=== PATIENT | female | born 1970 | race African-American/Black ===

== ENCOUNTER 2024-02-07 22:00 | Emergency (ER) | payer OTHER, MEDICAID ==
[~2024-02-07] VITALS: Ht 157.5 cm; Wt 84.0 kg
[~2024-02-07 22:00] MED LIST: ACET-3161 PO; ATOR-2 PO; CARV12.545 PO; HYDR-4005 PO; INSU3INS6 SUBCUT; PANT40TA51 PO; PREG75CA PO; RIVA20TA PO
[2024-02-07 22:22] VITALS: TEMP 98.1; O2SAT 100
[2024-02-07] MEDS ORDERED: METOCLOPRAMIDE HCL 10MG/2ML VIAL IV NR (23:00)
[2024-02-07] MEDS ORDERED: DIPHENHYDRAMINE 50MG/ML VIAL IV NR (23:00)
[2024-02-07 23:25] LABS: BASOPHILS % 0.4 % (0.0-2.0); EOSINOPHILS % 1.8 % (0.0-5.0); HEMATOCRIT. 43.7 % (36.0-48.0); HEMOGLOBIN. 14.5 g/dL (12.0-16.0); LYMPHOCYTES % 33.8 % (20.0-50.0); MEAN CORPUSCULAR HEMOGLOBIN 26.6 pg (28.0-32.0); MEAN CORPUSCULAR HGB CONC 33.2 g/dL (31.0-37.0); MEAN PLATELET VOLUME 8.6 fl (7.4-10.4); MONOCYTES % 8.3 % (2.0-8.0); NEUTROPHILS % 55.7 % (40.0-76.0); PLATELET 237 x1000/uL (130-400); RED BLOOD CELL COUNT 5.46 mill/uL (4.2-5.4); RED CELL DISTRIBUTION WIDTH 14.6 % (11.6-14.6); WHITE BLOOD COUNT 7.9 x1000/uL (4.5-11.0)
[2024-02-07 23:30] LABS: CHLORIDE 107 mEq/L (98-107); POTASSIUM 4.1 mEq/L (3.5-5.1); SODIUM 139 mEq/L (136-145)
[2024-02-07 23:31] LABS: CALCIUM 9.8 mg/dL (8.7-10.4); CARBON DIOXIDE 27 mEq/L (21-32)
[2024-02-07 23:36] LABS: CREATININE 1.3 mg/dL (0.6-1.0); GLUCOSE 308 mg/dL (70-105); UREA NITROGEN BLOOD 14 mg/dL (9-23)
[2024-02-07 23:38] LABS: TROPONIN I HIGH SENSITIVITY 5 ng/L (3.0-34)
[2024-02-07 23:39] LABS: ETHANOL BLOOD < 10 mg/dL (<10)
[2024-02-08] MEDS: ACETAMINOPHEN 325MG TABLET PO NR (01:17)
[2024-02-08] MEDS: METOCLOPRAMIDE HCL 10MG TABLET PO ONE (01:41)
[2024-02-08] MEDS: DIPHENHYDRAMINE 25MG CAPSULE PO ONE (01:41)
[2024-02-08 02:20] LABS: *AMPHETAMINES SCREEN URINE NEGATIVE (NEGATIVE); *BARBITURATES SCREEN URINE NEGATIVE (NEGATIVE); *BENZODIAZEPINES SCREEN URINE NEGATIVE (NEGATIVE); *COCAINE SCREEN URINE NEGATIVE (NEGATIVE); CANNABINOID URINE SCREEN NEGATIVE (NEGATIVE); ECSTASY MDMA SCREEN URINE NEGATIVE (NEGATIVE); METHADONE URINE SCREEN NEGATIVE (NEGATIVE); OPIATES URINE SCREEN NEGATIVE (NEGATIVE); PHENCYCLIDINE URINE SCREEN NEGATIVE (NEGATIVE)
[2024-02-08] MEDS ORDERED: METO-293 MT (02:44)
[2024-02-08] MEDS ORDERED: ACET-2708 MT (02:44)
[2024-02-08 03:41] VITALS: BP 141/77; PULSE 92; RESP 14
== END 2024-02-08 03:42 | disposition home or self-care (01) ==
LOC: ER 22:00
DX: G44.209 Tension-type headache, unspecified, not intractable (principal); I10 Essential (primary) hypertension; E11.9 Type 2 diabetes mellitus without complications; I25.2 Old myocardial infarction; Z79.899 Other long term (current) drug therapy
CPT/HCPCS: 80048; 80320; 83880; 85025; 84484; 36415; 70450; 93005; 99284; 80305; Q0163; J8597; J1200; J2765; G0480

== ENCOUNTER 2024-02-08 18:49 | Emergency (ER) | payer OTHER, MEDICAID ==
[~2024-02-08] VITALS: Ht 162.6 cm; Wt 82.0 kg
[~2024-02-08 18:49] MED LIST changes: +ACET-2708 MT; +METO-293 MT
[2024-02-08 18:55] VITALS: BP 120/71; PULSE 86; RESP 18; TEMP 98.1; O2SAT 98
== END 2024-02-08 19:57 | disposition home or self-care (01) ==
LOC: ER 18:49
DX: I63.9 Cerebral infarction, unspecified (principal); E11.9 Type 2 diabetes mellitus without complications; I10 Essential (primary) hypertension; I25.2 Old myocardial infarction; Z90.89 Acquired absence of other organs; Z98.890 Other specified postprocedural states
CPT/HCPCS: 99281

== ENCOUNTER 2024-03-03 20:35 | Inpatient (IN) | payer MEDICAID ==
[~2024-03-03] VITALS: Ht 157.5 cm; Wt 81.2 kg
[2024-03-03 20:35] VITALS: BP 187/97; PULSE 101; RESP 19; TEMP 98.6
[2024-03-03] MEDS ORDERED: DEXTROSE 50% WATER 50ML SYRINGE IV PRN (22:30)
[2024-03-03] MEDS ORDERED: ERGOCALCIFEROL 50000UNITS CAPSULE PO ONE (22:30)
[2024-03-03] MEDS ORDERED: ONDANSETRON 4MG ODT PO PRN (22:30)
[2024-03-03] MEDS ORDERED: CALCIUM CARBONATE 500MG TABLET CHEW PO PRN (22:30)
[2024-03-03 23:00] VITALS: BP 187/97; PULSE 101; RESP 19; TEMP 98.6
[2024-03-04] MEDS: CLONIDINE 0.2MG TABLET PO PRN (00:04)
[2024-03-04] MEDS: PANTOPRAZOLE 40MG DR TABLET PO SCH (06:55)
[2024-03-04] MEDS: INSULIN LISPRO 100 UNITS/ML SUBCUT SCH (06:58)
[2024-03-04] MEDS: BLOOD SUGAR DIAGNOSTIC STRIP TEST SCH (06:58)
[2024-03-04 08:00] VITALS: BP 138/69; PULSE 92; RESP 20; TEMP 96.1
[2024-03-04] MEDS: CILOSTAZOL 100MG TABLET PO SCH (08:54)
[2024-03-04] MEDS: CLOPIDOGREL 75MG TABLET PO SCH (08:54)
[2024-03-04] MEDS: FLUDROCORTISONE ACETATE 0.1MG TABLET PO SCH (08:55)
[2024-03-04] MEDS: MIDODRINE HCL 5MG TABLET PO SCH (08:55)
[2024-03-04] MEDS: LIDOCAINE 5% PATCH TOP SCH (08:57)
[2024-03-04] MEDS ORDERED: NON FORMULARY PATIENT HOME MED PO SCH (09:00)
[2024-03-04] MEDS: ENOXAPARIN 40MG/0.4ML SYR SUBCUT SCH (12:30)
[2024-03-04] MEDS: EMPAGLIFLOZIN 10MG TABLET PO SCH (14:45)
[2024-03-04 15:14] LABS: BASOPHILS % 0.6 % (0.0-2.0); HEMATOCRIT. 36.9 % (36.0-48.0); LYMPHOCYTES % 21.7 % (20.0-50.0); MEAN CORPUSCULAR HEMOGLOBIN 26.1 pg (28.0-32.0); MEAN CORPUSCULAR HGB CONC 32.5 g/dL (31.0-37.0); MEAN CORPUSCULAR VOLUME 80.1 fL (81.0-99.0); NEUTROPHILS % 66.7 % (40.0-76.0); PLATELET 349 x1000/uL (130-400); RED CELL DISTRIBUTION WIDTH 15.8 % (11.6-14.6); WHITE BLOOD COUNT 8.9 x1000/uL (4.5-11.0)
[2024-03-04 15:21] LABS: CHLORIDE 106 mEq/L (98-107); POTASSIUM 3.9 mEq/L (3.5-5.1); SODIUM 140 mEq/L (136-145)
[2024-03-04 15:22] LABS: CALCIUM 9.3 mg/dL (8.7-10.4); CARBON DIOXIDE 24 mEq/L (21-32)
[2024-03-04 15:27] LABS: CREATININE 1.1 mg/dL (0.6-1.0); GLUCOSE 149 mg/dL (70-105); UREA NITROGEN BLOOD 8 mg/dL (9-23)
[2024-03-04 15:29] LABS: ALANINE AMINOTRANSFERASE 13 IU/L (10-49); ALBUMIN 3.6 g/dL (3.2-4.8); ASPARTATE AMINOTRANSFERASE 22 IU/L (<34); BILIRUBIN TOTAL 0.6 mg/dL (0.1-1.0); PREALBUMIN 8.3 mg/dl (10.0-40.0); PROTEIN TOTAL 6.4 g/dL (6.0-8.3)
[2024-03-04 20:00] VITALS: BP 152/75; PULSE 101; RESP 20; TEMP 98.2
[2024-03-04] MEDS: ATORVASTATIN CALCIUM 40MG TABLET PO SCH (21:08)
[2024-03-04] MEDS: GABAPENTIN 300MG CAPSULE PO SCH (21:08)
[2024-03-04] MEDS: ACETAMINOPHEN 325MG TABLET PO PRN (21:10)
[2024-03-05 08:00] VITALS: BP 149/71; PULSE 85; RESP 19; TEMP 97.6
[2024-03-05] MEDS: ACETAMINOPHEN 325MG TABLET PO PRN (13:44)
[2024-03-05] MEDS: BISMUTH SUBSALICYLATE 262 MG/15 ML-120ML BOTTLE PO PRN (16:52)
[2024-03-05 20:00] VITALS: BP 142/84; PULSE 96; RESP 18; TEMP 97.9
[2024-03-06 07:30] LABS: CHLORIDE 109 mEq/L (98-107); POTASSIUM 5.4 mEq/L (3.5-5.1); SODIUM 139 mEq/L (136-145)
[2024-03-06 07:31] LABS: CALCIUM 9.3 mg/dL (8.7-10.4)
[2024-03-06 07:36] LABS: CREATININE 1.1 mg/dL (0.6-1.0); GLUCOSE 192 mg/dL (70-105); IRON 48 ug/dL (50-170); UREA NITROGEN BLOOD 6 mg/dL (9-23)
[2024-03-06 07:38] LABS: TOTAL IRON BINDING CAPACITY 254 ug/dl (250-425)
[2024-03-06 07:41] LABS: THYROID STIMULATING HORMONE 2.56 uIU/mL (0.55-4.78)
[2024-03-06 08:00] VITALS: BP 128/59; PULSE 108; RESP 20; TEMP 98
[2024-03-06] MEDS: ERGOCALCIFEROL 50000UNITS CAPSULE PO SCH (08:51)
[2024-03-06] MEDS: FAMOTIDINE 20MG TABLET PO SCH (08:52)
[2024-03-06 09:13] LABS: FERRITIN 188 ng/mL (10-291)
[2024-03-06 09:14] LABS: VITAMIN B12 SERUM 901 pg/mL (211-911)
[2024-03-06 10:57] LABS: CARBON DIOXIDE 14 mEq/L (21-32)
[2024-03-06 11:14] LABS: BASOPHILS % 1.2 % (0.0-2.0); DIFFERENTIAL COMMENT 0; EOSINOPHILS % 0.9 % (0.0-5.0); HEMATOCRIT. 38.9 % (36.0-48.0); HEMOGLOBIN. 12.4 g/dL (12.0-16.0); LYMPHOCYTES % 26.3 % (20.0-50.0); MEAN CORPUSCULAR HEMOGLOBIN 25.3 pg (28.0-32.0); MEAN CORPUSCULAR VOLUME 79.2 fL (81.0-99.0); MEAN PLATELET VOLUME 7.9 fl (7.4-10.4); MONOCYTES % 9.2 % (2.0-8.0); NEUTROPHILS % 62.4 % (40.0-76.0); RED BLOOD CELL COUNT 4.91 mill/uL (4.2-5.4); RED CELL DISTRIBUTION WIDTH 16.2 % (11.6-14.6); WHITE BLOOD COUNT 8.3 x1000/uL (4.5-11.0)
[2024-03-06 11:17] LABS: PLATELET 382 x1000/uL (130-400)
[2024-03-06 11:46] LABS: POTASSIUM 3.4 mEq/L (3.5-5.1)
[2024-03-06 12:05] LABS: FOLIC ACID (FOLATE) SERUM 19.69 ng/mL (>5.38)
[2024-03-06 20:00] VITALS: BP 144/87; PULSE 112; RESP 18; TEMP 98.1
[2024-03-06] MEDS: POTASSIUM CHLORIDE 20MEQ/PACKET PO NR (20:04)
[2024-03-07 07:15] LABS: BASOPHILS % 0.8 % (0.0-2.0); DIFFERENTIAL COMMENT 0; EOSINOPHILS % 1.7 % (0.0-5.0); HEMATOCRIT. 34.9 % (36.0-48.0); HEMOGLOBIN. 11.4 g/dL (12.0-16.0); LYMPHOCYTES % 40.3 % (20.0-50.0); MEAN CORPUSCULAR HGB CONC 32.7 g/dL (31.0-37.0); MEAN CORPUSCULAR VOLUME 79.3 fL (81.0-99.0); MEAN PLATELET VOLUME 8.2 fl (7.4-10.4); MONOCYTES % 13.9 % (2.0-8.0); NEUTROPHILS % 43.3 % (40.0-76.0); PLATELET 306 x1000/uL (130-400); RED CELL DISTRIBUTION WIDTH 16.6 % (11.6-14.6); WHITE BLOOD COUNT 5.5 x1000/uL (4.5-11.0)
[2024-03-07 07:19] LABS: POTASSIUM 3.9 mEq/L (3.5-5.1)
[2024-03-07 07:20] LABS: CALCIUM 9.4 mg/dL (8.7-10.4)
[2024-03-07 07:25] LABS: CREATININE 1.3 mg/dL (0.6-1.0)
[2024-03-07 08:00] VITALS: BP 117/50; PULSE 112; RESP 18; TEMP 98.1
[2024-03-07] MEDS: FERROUS SULFATE 325MG TABLET PO SCH (12:52)
[2024-03-07 20:00] VITALS: BP 133/75; PULSE 110; RESP 18; TEMP 98.4
[2024-03-08 06:26] LABS: POTASSIUM 3.3 mEq/L (3.5-5.1)
[2024-03-08 06:28] LABS: CALCIUM 9.2 mg/dL (8.7-10.4)
[2024-03-08 06:32] LABS: CREATININE 1.3 mg/dL (0.6-1.0)
[2024-03-08 08:00] VITALS: BP 140/73; PULSE 75; PULSE 91; RESP 18; RESP 20; TEMP 98.4; TEMP 98.6
[2024-03-08] MEDS: ASCORBIC ACID 500 MG TABLET PO SCH (08:31)
[2024-03-08] MEDS ORDERED: POTASSIUM CHLORIDE 8 MEQ TABLET SR PO ONE (11:15)
[2024-03-08] MEDS ORDERED: POTASSIUM CHLORIDE 20MEQ TABLET SR PO SCH (11:15)
[2024-03-08] MEDS: POTASSIUM CHLORIDE 20MEQ TABLET SR PO NR (11:30)
[2024-03-08] MEDS: MIDODRINE HCL 5MG TABLET PO SCH (14:00)
[2024-03-08 20:00] VITALS: BP 154/81; PULSE 82; RESP 20; TEMP 97.8
[2024-03-08] MEDS: INSULIN GLARGINE 100 UNITS/ML SUBCUT SCH (22:15)
[2024-03-09 06:28] LABS: CHLORIDE 112 mEq/L (98-107); POTASSIUM 3.7 mEq/L (3.5-5.1); SODIUM 145 mEq/L (136-145)
[2024-03-09 06:29] LABS: CALCIUM 9.3 mg/dL (8.7-10.4); CARBON DIOXIDE 26 mEq/L (21-32)
[2024-03-09 06:34] LABS: CREATININE 1.1 mg/dL (0.6-1.0); GLUCOSE 93 mg/dL (70-105); UREA NITROGEN BLOOD 7 mg/dL (9-23)
[2024-03-09 08:00] VITALS: BP 145/69; PULSE 104; RESP 20; TEMP 97.9
[2024-03-09] MEDS: ERGOCALCIFEROL 50000UNITS CAPSULE PO SCH (16:00)
[2024-03-09] MEDS: AMLODIPINE 2.5MG TABLET PO SCH (17:00)
[2024-03-09] MEDS: MIDODRINE HCL 5MG TABLET PO SCH (17:00)
[2024-03-09] MEDS: INSULIN LISPRO 100 UNITS/ML SUBCUT SCH (18:23)
[2024-03-09 20:00] VITALS: BP 138/80; PULSE 88; RESP 20; TEMP 97.2
[2024-03-10 06:42] LABS: CHLORIDE 111 mEq/L (98-107); POTASSIUM 3.6 mEq/L (3.5-5.1); SODIUM 143 mEq/L (136-145)
[2024-03-10 06:43] LABS: CARBON DIOXIDE 25 mEq/L (21-32)
[2024-03-10 06:44] LABS: CALCIUM 9.5 mg/dL (8.7-10.4)
[2024-03-10 06:49] LABS: CREATININE 1.1 mg/dL (0.6-1.0); GLUCOSE 102 mg/dL (70-105); UREA NITROGEN BLOOD 5 mg/dL (9-23)
[2024-03-10 07:00] LABS: BASOPHILS % 0.4 % (0.0-2.0); EOSINOPHILS % 2.2 % (0.0-5.0); HEMATOCRIT. 36.4 % (36.0-48.0); HEMOGLOBIN. 11.5 g/dL (12.0-16.0); LYMPHOCYTES % 54.8 % (20.0-50.0); MEAN CORPUSCULAR HEMOGLOBIN 25.6 pg (28.0-32.0); MEAN CORPUSCULAR HGB CONC 31.6 g/dL (31.0-37.0); MEAN CORPUSCULAR VOLUME 81.1 fL (81.0-99.0); MEAN PLATELET VOLUME 9.1 fl (7.4-10.4); MONOCYTES % 11.7 % (2.0-8.0); NEUTROPHILS % 30.9 % (40.0-76.0); PLATELET 295 x1000/uL (130-400); RED BLOOD CELL COUNT 4.48 mill/uL (4.2-5.4); RED CELL DISTRIBUTION WIDTH 16.8 % (11.6-14.6); WHITE BLOOD COUNT 6.3 x1000/uL (4.5-11.0)
[2024-03-10 07:58] VITALS: BP 116/68; PULSE 109; RESP 20; TEMP 98.3
[2024-03-10 10:42] VITALS: BP 116/68; PULSE 109; TEMP 98.3
[2024-03-10 10:54] VITALS: BP 116/68; PULSE 109; TEMP 98.3
[2024-03-10] MEDS ORDERED: AMLO2.5T45 PO (11:52)
[2024-03-10] MEDS ORDERED: ASCO125T PO (11:57)
[2024-03-10] MEDS ORDERED: ATOR40TA70 PO (11:59)
[2024-03-10] MEDS ORDERED: ATOR-2 PO (11:59)
[2024-03-10] MEDS ORDERED: CALC-586 PO (12:04)
[2024-03-10] MEDS ORDERED: EMPA10TA PO (12:18)
[2024-03-10] MEDS ORDERED: MIDO5TAB4 PO (12:18)
[2024-03-10] MEDS ORDERED: FAMO20TA8 PO (12:18)
[2024-03-10] MEDS ORDERED: GABA-532 MT (12:18)
[2024-03-10] MEDS ORDERED: CILO100T27 PO (12:18)
[2024-03-10] MEDS ORDERED: INSU100I28 SQ (12:18)
[2024-03-10] MEDS ORDERED: FLUD0.1T PO (12:18)
[2024-03-10] MEDS ORDERED: FERR325T6 PO (12:18)
[2024-03-10] MEDS ORDERED: ONDA4TAB11 PO (12:18)
[2024-03-10] MEDS ORDERED: CLOP75TA33 PO (12:18)
[2024-03-10] MEDS ORDERED: INSLIS SUBCUT (12:18)
== END 2024-03-10 12:45 | disposition home or self-care (01) | DRG 45 ==
PROVIDERS: ADMIT Physical Medicine & Rehabilitation Spinal Cord Injury Medicine; ATTEND Internal Medicine
DX: I63.511 Cerebral infarction due to unspecified occlusion or stenosis of right middle cerebral artery (principal); N17.9 Acute kidney failure, unspecified; E46 Unspecified protein-calorie malnutrition; E11.22 Type 2 diabetes mellitus with diabetic chronic kidney disease; E11.51 Type 2 diabetes mellitus with diabetic peripheral angiopathy without gangrene; I69.354 Hemiplegia and hemiparesis following cerebral infarction affecting left non-dominant side; D64.9 Anemia, unspecified; E11.65 Type 2 diabetes mellitus with hyperglycemia; E78.5 Hyperlipidemia, unspecified; E61.1 Iron deficiency; I25.10 Atherosclerotic heart disease of native coronary artery without angina pectoris; E87.5 Hyperkalemia; E78.00 Pure hypercholesterolemia, unspecified; I12.9 Hypertensive chronic kidney disease with stage 1 through stage 4 chronic kidney disease, or unspecified chronic kidney disease; E55.9 Vitamin D deficiency, unspecified; N18.9 Chronic kidney disease, unspecified; E66.9 Obesity, unspecified; I77.1 Stricture of artery; Z79.02 Long term (current) use of antithrombotics/antiplatelets; I69.320 Aphasia following cerebral infarction; Z95.5 Presence of coronary angioplasty implant and graft; Z79.899 Other long term (current) drug therapy; Z83.3 Family history of diabetes mellitus; Z89.411 Acquired absence of right great toe; Z68.32 Body mass index [BMI] 32.0-32.9, adult
CPT/HCPCS: 36415; 71045; 80048; 80053; 82306; 82607; 82728; 82746; 82962; 83036; 83540; 83550; 83735; 84132; 84134; 84443; 85025; 92523; 92610; 97110; 97112; 97116; 97162; 97166; 97530; 97535; J1650; J1815